=== PATIENT | female | born 1960 | race Caucasian/White ===

== ENCOUNTER 2024-03-28 11:34 | Emergency (ER) | payer BC, SELFPAY ==
[2024-03-28 11:53] VITALS: BP 128/91
[2024-03-28 11:56] VITALS: BMI 34.7
[2024-03-28 11:57] LABS: Glucose - Point of Care 90 mg/dl (70-99)
[2024-03-28 12:31] LABS: % Basophils 1.1 % (0-2); % Immature Granulocytes 0.2 % (0-0.5); % Lymphocytes 28.3 % (20.5-51.1); % Monocytes 9.5 % (1.7-9.3); % Neutrophils 58.9 % (42.2-75.2); ALT (SGPT) 38 U/L (0-35); AST (SGOT) 42 U/L (14-36); Absolute Basophils 0.1 10^3/uL (0-0.2); Absolute Eosinophils 0.2 10^3/uL (0-0.7); Absolute Lymphocytes 2.3 10^3/uL (1.2-3.4); Absolute Monocytes 0.8 10^3/uL (0.1-0.6); Absolute Neutrophils 4.8 10^3/uL (1.4-6.5); Albumin 4.3 g/dl (3.5-5.0); Alkaline Phosphatase 89 U/L (38-126); Blood Urea Nitrogen 17 mg/dl (7-17); Calcium 9.5 mg/dl (8.4-10.2); Carbon Dioxide 25 mmol/L (22-30); Chloride 107 mmol/L (98-107); Estimated Creatinine Clearance 97 ml/min; Glucose 90 mg/dl (70-99); Hemoglobin 15.2 g/dL (12.0-16.0); Mean Corp Hgb Conc. 34.5 g/dL (33.0-37.0); Mean Corpuscular Hgb 30.6 pg (27.0-31.0); Mean Corpuscular Volume 88.7 fL (81.0-99.0); Mean Platelet Volume 11.1 fL (7.4-10.4); Nucleated Red Blood Cells % 0 %; Platelet Count 329 10^3/uL (130-400); Potassium 4.4 mmol/L (3.5-5.1); Red Blood Cell Count 4.96 10^6/uL (4.20-5.40); Red Cell Dist. Width 13.2 % (11.5-14.5); Sodium 138 mmol/L (135-145); Total Bilirubin 0.8 mg/dl (0.2-1.3); Total Protein 7.3 g/dl (6.3-8.2); White Blood Cell Count 8.2 10^3/uL (4.8-10.8); eGFR > 60.00
[2024-03-28 12:41] LABS: Troponin I < 0.012 ng/ml
[2024-03-28 12:42] LABS: INR 2.61; PT 27.8 Sec (11.4-14.6)
[2024-03-28 12:43] LABS: APTT 46.1 Sec (23.4-35.0)
--- NOTE | 2024-03-28 13:26 | ED.GENMED ---
History of Present Illness
General
Chief Complaint: Eye Problems
Source: patient
Time Seen by Provider: 03/28/24 13:08
History of Present Illness
History of Present Illness:
64-year-old female with past medical history of pulmonary embolism (known genetic bleeding disorder) presenting to the emergency department for evaluation of left-sided facial droop and numbness that started on March 24, yesterday evening went
swimming and noticed she was unable to close her left eye which is what prompted her to come to the ER today. Patient states that she would have come to the emergency department sooner however her sister earlier this week and she was
unable to come to the ER. She denies any headaches, visual disturbances, other focal weakness or numbness, chest pain, shortness of breath or any other concerns. Patient denies any history of similar.
Past History
Past History
ED Past Medical History: Other (Pulmonary embolus)
ED Past Surgical History: Gynecological
Social History
Tobacco: Non-smoker
Alcohol: None
Drug: None
Personal:
Living: with family
Review of Systems
Review of Systems
All Other Systems: ROS reviewed and negative except as documented in HPI and ROS
Phy Exam
Physical Exam
Physical Exam:
GENERAL: Alert , in no apparent distress
HEAD : NCAT
EYE: conjunctiva clear
NECK: Supple
ENT: o/p clr, mmm.
CARDIAC: Regular rate and rhythm
LUNGS: Clear breath sounds bilaterally, no acute respiratory distress, no wheezes/rales/rhonchi
NEUROLOGICAL: Alert and oriented x 3, moderate left-sided facial droop, unable to close left eye fully and unable to lift left eyebrow. Facial sensation is intact. No tongue deviation
SKIN: Warm and dry, skin intact.
MUSCULOSKELETAL: well perfused.
PSYCH: Normal and appropriate interaction.
Scores
NIH Stroke Score
Level of Consciousness: 0 - Alert
LOC Questions: 0-Answers both correctly
LOC Commands: 0-Performs both correctly
Best Horizontal Gaze: 0-Normal
Visual Roblero: 0=Normal, no visual loss
Facial Palsy: 2=Partial paralysis
Motor - Right Arm: 0=No drift 10 seconds
Motor - Left Arm: 0=No drift 10 seconds
Motor - Right Le-No drift 5 seconds
Motor - Left Le-No drift 5 seconds
Limb Ataxia: 0-Absent
Sensation: 0-Normal
Best Language: 0-No aphasia
Dysarthria: 0-Normal
Extinction and Inattention: 0-No abnormality
Total Score:: 2
Heart Failure Risk
Heart Failure Risk Score: Not Applicable
Heart Score for Chest Pain Patients
STEMI patient?: Not applicable
Withdrawal Assessment of Alcohol
Withdrawal Assessment Completed?: Not applicable
Course
Orders/Labs/Results
Orders:
Orders
03/28/24 11:59
Bedside Glucose- Treatment ONCE
03/28/24 12:06
Complete Blood Count/With Diff Urgent
Comprehensive Metabolic Panel Urgent
Lyme Progressive Urgent
PTT Urgent
Prothrombin Time Stat
Troponin I Urgent
Abnormal Lab Results
03/28/24
12:06
MPV 11.1 H fL
(7.4-10.4)
Absolute Monos (auto) 0.8 H 10^3/uL
(0.1-0.6)
Monocytes % 9.5 H %
(1.7-9.3)
PT 27.8 H Sec
(11.4-14.6)
APTT 46.1 H Sec
(23.4-35.0)
AST 42 H U/L
(14-36)
ALT 38 H U/L
(0-35)
03/28/24 12:06
03/28/24 12:06
Vital Signs
Initial and Last Documented VS:
Initial Vital Signs
Temp Pulse Resp BP Pulse Ox
98.8 F 84 16 128/91 98
03/28/24 11:53 03/28/24 11:53 03/28/24 11:53 03/28/24 11:53 03/28/24 11:53
Last Documented Vital Signs
Temp Pulse Resp BP Pulse Ox
98.8 F 84 16 128/91 98
03/28/24 11:53 03/28/24 11:53 03/28/24 11:53 03/28/24 11:53 03/28/24 11:53
MDM/Problems Addressed
Differential Diagnosis Includes:
Hendricks's palsy, given the entire left side of her face is affected I do not have concern for an acute stroke or CVA, Lyme's
MDM/Problems Addressed:
64-year-old female presenting the emergency department with left-sided facial weakness. Symptoms seem to be most suggestive of a Hendricks's palsy. Patient is on Coumadin due to history of PE and bleeding/clotting disorder. Her labs were initiated
from triage which show a therapeutic INR. Lyme titer sent. Patient is requesting to be treated with doxycycline as well for possible Lyme cause for Hendricks's palsy given she walks her dog in the park daily and has picked multiple ticks off him
recently. Prescription for prednisone also sent to pharmacy. I did consider a head CT however I am not suspicious for acute or intracranial bleeding. Patient is stable for outpatient follow-up with primary care provider. Aware of return
precautions to the ER.
*Pulse Oximetry
Patient hypoxic: no
*Critical Care Note
Total Time (30-74mins, 75-104mins- exclusive of procedures): Not Applicable
ED Attending Note
-
Portions of this chart may have been created with voice recognition software.� Occasional wrong word or��sound alike� substitutions may have occurred due to the inherent limitations of voice recognition software.
Discharge Plan
Departure
Patient Disposition: Home (Routine Discharge)
Date of Disposition: 03/28/24
Time of Disposition: 13:26
Patient with high blood pressure during this ER visit?: No
Discharge Problem:
Hendricks's palsy
Instructions: Hendricks's palsy
Prescriptions:
New
prednisone 20 mg tablet
60 mg PO DAILY 7 Days Qty: 21 0RF
doxycycline hyclate 100 mg tablet
100 mg PO BID 14 Days Qty: 28 0RF
Referrals:
Andrea Bustamante MD [Family Provider] -
Interventions
Interventions:
*Risk Screen - Suicide Last Done: 03/28/24 11:57
*Neglect/Abuse Screening Last Done: 03/28/24 11:57
*ED COVID-19 Vaccine History Last Done: 03/28/24 11:57
*Nursing Disposition Last Done: 03/28/24 13:41
Discharge Date and Time
Discharge Date/Time: 03/28/24 13:42
Print Language: TELUGU
[2024-03-28 13:31] LABS: Glucose - Point of Care 86 mg/dl (70-99)
[2024-03-30 11:51] LABS: Lyme Antibody Screen, EIA Negative (Negative)
== END 2024-03-28 13:42 | disposition home or self-care (01) ==
LOC: EMR 11:34
PROVIDERS: EMERGENCY PHYSICIAN Student in an Organized Health Care Education/Training Program; FAMILY PHYSICIAN Internal Medicine
DX: G51.0 Bell's palsy (principal)
CPT/HCPCS: 99283; 80053; 82962; 84484; 85025; 85610; 85730; 86618

== ENCOUNTER 2024-04-03 15:45 | Emergency (ER) | payer BC, SELFPAY ==
[2024-04-03 15:47] VITALS: BP 156/79
[2024-04-03 16:00] VITALS: BP 141/78
--- NOTE | 2024-04-03 17:08 | ED.GENMED ---
History of Present Illness
General
Chief Complaint: Numbness
Source: patient
Exam Limitations: none
Time Seen by Provider: 04/03/24 16:51
History of Present Illness
History of Present Illness:
64-year-old female on Coumadin presents for reevaluation. She was here 6 days ago felt to have a left-sided Hendricks's palsy. No imaging studies were performed. The Lyme test was negative. She never did start her doxycycline as it interacted with
her clotting disorder per the pharmacist. She will check with her family doctor today and they sent her here for imaging as the patient had persistent numbness to the face now with the ability to raise both eyebrows. She notes she feels fatigued
but denies any unilateral extremity numbness or weakness. She denies a rash or fever. Did feel slight sore throat and congestion. She is under a lot of stress. Her sister recently. She states is a lot of stress at work as well. No chest
pain or shortness of breath. No other complaints at this time
Past History
Past History
ED Past Medical History: Other (Pulmonary embolus)
ED Past Surgical History: Gynecological
Social History
Tobacco: Non-smoker
Alcohol: None
Drug: None
Personal:
Living: with family
Phy Exam
Physical Exam
Physical Exam:
General: Well-appearing female no acute respiratory distress
HEENT: Normal cephalic atraumatic pupils equal round reactive to light extraocular motions are intact TMs normal
Heart: Regular rate and rhythm no murmur
Lungs: Clear no wheeze or rales
Neurologic exam: Alert and oriented x 3 no significant facial asymmetry appreciated at this time. Able to wrinkle both sides of the forehead symmetrically. She is able to forcefully close her left eye at the same time as the right eye. No
weakness noted upon testing this. No facial droop otherwise. No drift on exam good strength to the upper and lower extremities No dysarthria or aphasia.
Skin is warm no rash or lesion
Extremities: No cyanosis
Course
Orders/Labs/Results
Orders:
Orders
04/03/24 15:52
CT Head W/o Iv Contrast Urgent
Comment:
Reason For Exam: numbness
Vital Signs
Initial and Last Documented VS:
Initial Vital Signs
Temp Pulse Resp BP Pulse Ox
98.9 F 73 18 156/79 95
04/03/24 15:47 04/03/24 15:47 04/03/24 15:47 04/03/24 15:47 04/03/24 15:47
Last Documented Vital Signs
Temp Pulse Resp BP Pulse Ox
98.9 F 73 18 156/79 95
04/03/24 15:47 04/03/24 15:47 04/03/24 15:47 04/03/24 15:47 04/03/24 15:47
MDM/Problems Addressed
Differential Diagnosis Includes:
Patient was initially seen today by family doctor and sent in here for CAT scan of her head to rule out stroke. She is anticoagulated INR last week was 2.6. Labs otherwise were reviewed and were well. CT of the head was performed through triage
today which I personally reviewed and the radiologist has read. There is no acute finding. I suspect patient's ability to wrinkle both sides of forehead are resulted in improving Hendricks's palsy. Patient also agrees. She just finished her
prednisone. Advised follow-up with family doctor. Her symptoms have been ongoing for approximately 10 days. If she had an acute stroke 10 days ago I would expect findings to suggest this on CAT scan today. No indication for any repeat blood
work. Patient expresses her desire to go home
*Critical Care Note
Total Time (30-74mins, 75-104mins- exclusive of procedures): Not Applicable
ED Attending Note
-
Portions of this chart may have been created with voice recognition software.� Occasional wrong word or��sound alike� substitutions may have occurred due to the inherent limitations of voice recognition software.
Discharge Plan
Departure
Patient Disposition: Home (Routine Discharge)
Date of Disposition: 04/03/24
Time of Disposition: 17:12
Patient with high blood pressure during this ER visit?: No
Discharge Problem:
resolving bells palsy
Instructions: Paresthesia (DC)
Prescriptions:
No Action
prednisone 20 mg tablet
60 mg PO DAILY 7 Days Qty: 21 0RF
doxycycline hyclate 100 mg tablet
100 mg PO BID 14 Days Qty: 28 0RF
Referrals:
NONE,* [Active] -
Activity Restrictions/Additional Instructions:
Please return here for worsening symptoms peer follow-up with your family doctor otherwise
Interventions
Interventions:
*Risk Screen - Suicide Last Done: 04/03/24 15:47
*General Assessment Last Done: 04/03/24 15:47
*Neglect/Abuse Screening Last Done: 04/03/24 15:47
*ED COVID-19 Vaccine History Last Done: 04/03/24 15:47
Discharge Date and Time
Print Language: HUNGARIAN
== END 2024-04-03 17:27 | disposition home or self-care (01) ==
LOC: EMR 15:45
PROVIDERS: EMERGENCY PHYSICIAN Emergency Medicine; FAMILY PHYSICIAN Internal Medicine
DX: G51.0 Bell's palsy (principal); Z79.01 Long term (current) use of anticoagulants; Z56.6 Other physical and mental strain related to work; Z63.4 Disappearance and death of family member
CPT/HCPCS: 99284; 70450